=== PATIENT | female | born 1950 | race Caucasian/White ===

== ENCOUNTER 2018-04-29 09:02 | Outpatient (CLI) | payer MEDICARE | END 2018-04-29 09:03 | disposition home or self-care (01) | LOC: C.LAB 09:02 | DX: Z76.1 Encounter for health supervision and care of foundling (principal) ==

== ENCOUNTER 2018-05-10 09:23 | Outpatient (CLI) | payer MEDICARE | END 2018-05-10 09:24 | disposition home or self-care (01) | LOC: C.USIC 09:23 | DX: I12.9 Hypertensive chronic kidney disease with stage 1 through stage 4 chronic kidney disease, or unspecified chronic kidney disease (principal) ==

== ENCOUNTER 2018-06-03 09:07 | Outpatient (CLI) | payer MEDICARE | END 2018-06-03 09:08 | disposition home or self-care (01) | LOC: C.LAB 09:07 | DX: I12.9 Hypertensive chronic kidney disease with stage 1 through stage 4 chronic kidney disease, or unspecified chronic kidney disease (principal); E87.1 Hypo-osmolality and hyponatremia ==